=== PATIENT | female | born 1965 | race Caucasian/White ===

== ENCOUNTER → 2017-05-16 | Outpatient (CLI) | payer BC ==
--- NOTE | 2017-05-17 08:26 | RAD ---
Indication: Third metatarsal region pain with walking. Technique: 2 views of the left foot are submitted for review. No comparison is available. Findings: There is no fracture or dislocation. There is a plantar calcaneal spur, prominent. There is spur at the insertion of the Achilles tendon. There is an enthesophyte in the region of the navicular. There is no soft tissue swelling. Impression: Mild degenerative changes. Negative for fracture.
== END | disposition home or self-care (01) ==
LOC: RAD 17:31
PROVIDERS: ATTEND Nurse Practitioner Family
DX: M19.072 Primary osteoarthritis, left ankle and foot (principal)
CPT/HCPCS: 73620